=== PATIENT | male | born 1995 | race Caucasian/White ===

== ENCOUNTER 2016-07-18 22:50 | Emergency (ER) | payer OTHER ==
[~2016-07-18] VITALS: Ht 175.3 cm; Wt 57.0 kg
[2016-07-18 22:56] VITALS: BP 156/63; PULSE 87; RESP 16; TEMP 98.5; O2SAT 97
--- NOTE | 2016-07-18 23:48 | PD ---
HPI Chief Complaint: Facial Pain or Swelling Time Seen by Provider: 22:53 Travel History International Travel<30 days: No Contact w/Intl Traveler<30days: No Traveled to known affect area: No History of Present Illness HPI Patient is a pleasant 20-year-old male who presents the emergency department with right sided eye swelling and facial pain. Patient was apparently found by passersby lying in the middle of the road. They called EMS. Patient admits to drinking heavily tonight and does not know what happened or how he got there. EMS noted a hematoma over the right eyes/face. Patient arrived in back board/ cervical collar. Smelling heavily of alcohol. Clothing wet. Patient does not know what happened and denies pain anywhere other than the head/face. [facility] Past Medical History Medical other: Yes ([place]) Tetanus Vaccination: Unknown Past Surgical History Surgical History: No Previous Surgery Social History Alcohol Use: Yes (OCCATIONALLY) Tobacco Use: Yes (1/2 PPD) Substance Use: Yes (MARIJUANA) Review of Systems ROS Limitations: Intoxication, Poor Historian Physical Exam Exam Limitations: Intoxication, Poor Historian Narrative GENERAL: Cachectic male young in no acute distress covered in wet clothing, smelling heavily of alcohol SKIN: Focused skin assessment warm/dry. HEAD: Right sided periorbital, facial swelling. Mild tenderness palpation over the right temporal region without palpable ecchymosis Normocephalic. EYES: Right sided periorbital ecchymosis and swelling. Pupils equal and round, EOMI without evidence of entrapment. No scleral icterus. No injection or drainage. ENT: No nasal bleeding or discharge. Mucous membranes pink and moist. NECK: Supple without midline tenderness to palpation CARDIOVASCULAR: Regular rate and rhythm. No murmur appreciated. No tenderness to palpation of the chest wall RESPIRATORY: No accessory muscle use. GASTROINTESTINAL: Abdomen soft, non-tender, nondistended. MUSCULOSKELETAL: Moves all extremity's normally without obvious deformity. No midline tenderness to palpation of thoracic or lumbar spine NEUROLOGICAL: Awake and alert questions and follows commands appropriately but confused about historical events of today. Motor grossly within normal limits. Normal speech. Data Data Last Documented VS Vital Signs Date Time Temp Pulse Resp B/P Pulse Ox O2 Delivery O2 Flow Rate FiO2 07/18/16 22:56 98.5 87 16 156/[address] Brain W/O Iv Contrast(Rout) (07/18/16 22:53) Ct Cerv Spine W/O Contrast (07/18/16 22:53) Ct Facial Bones W/O Iv Cont (07/18/16 22:53) MDM Medical Decision Making Medical Screen Exam Complete: Yes Emergency Medical Condition: Yes Medical Record Reviewed: Yes Differential Diagnosis 20-year-old male here found down outside with right sided head/facial trauma, heavily intoxicated. Differential includes closed head injury, skull fracture, ICH, overall fracture, orbital ecchymosis, facial fracture, cervical spine fracture, alcohol intoxication Narrative Course CTs of the head, neck and facial bones were obtained and negative. Patient reassured. He was able to ambulate independently in the emergency department despite his intoxication will be discharged home with safe ride. Diagnosis Primary Impression: Traumatic periorbital ecchymosis of right eye Qualified Code: S05.11XA - Traumatic periorbital ecchymosis of right eye, initial encounter Additional Impression: Alcohol intoxication Qualified Code: F10.920 - Alcohol intoxication, uncomplicated Referrals: Primary Care Physician as needed Additional Instructions: Ice to the affected area 20 minutes at a time 3-4 times daily. Tylenol, ibuprofen as needed for pain. Med/Other Pt SpecificInfo: No Change to Meds Disposition: 01 DISCHARGE HOME Condition: Stable Linda Ng MD July 18, 2016 23:48
--- NOTE | 2016-07-18 23:57 | RADRPT ---
EXAM DATE/TIME: 07/18/2016 23:40 [facility] COMPARISON: No previous studies available for comparison. INDICATIONS : Found unresponsive. RADIATION DOSE: 32.47 CTDIvol (mGy) MEDICAL HISTORY : None SURGICAL HISTORY : None. ENCOUNTER: Initial ACUITY: 1 day PAIN SCALE: Non-responsive LOCATION: distal TECHNIQUE: Multiple contiguous axial images were obtained of the head. Using automated exposure control and adj ustment of the mA and/or kV according to patient size, radiation dose was kept as low as reasonably a chievable to obtain optimal diagnostic quality images. FINDINGS: CEREBRUM: The ventricles are normal for age. No evidence of midline shift, mass lesion, hemorrhage or acute in farction. No extra-axial fluid collections are seen. POSTERIOR FOSSA: The cerebellum and brainstem are intact. The 4th ventricle is midline. The cerebellopontine angle i s unremarkable. EXTRACRANIAL: The visualized portion of the orbits is intact. There is soft tissue swelling over the right orbit. SKULL: The calvaria is intact. No evidence of skull fracture. CONCLUSION: 1. Unremarkable CT scan of the brain. 2. Soft tissue swelling over right orbit. David Keating MD on July 18, 2016 at 23:55 Board Certified Radiologist. This report was verified electronically.
--- NOTE | 2016-07-19 | RADRPT ---
EXAM DATE/TIME: 07/18/2016 23:40 [facility] COMPARISON: No previous studies available for comparison. INDICATIONS : Found unresponsive. RADIATION DOSE: 19.85 CTDIvol (mGy) MEDICAL HISTORY : None SURGICAL HISTORY : None. ENCOUNTER: Initial ACUITY: 1 day PAIN SCALE: Non-responsive LOCATION: neck TECHNIQUE: Volumetric scanning of the cervical spine was performed. Multiplanar reconstructions in the sagittal, coronal and oblique axial planes were performed. Using automated exposure control and adjustment o f the mA and/or kV according to patient size, radiation dose was kept as low as reasonably achievable to obtain optimal diagnostic quality images. FINDINGS: VERTEBRAE: Normal vertebral body height. No acute bony fracture. ALIGNMENT: No evidence of subluxation. C2-C3: The bony spinal canal is normal in size. No evidence of disc bulge or herniation. The neural forami na are bilaterally patent. C3-C4: The bony spinal canal is normal in size. No evidence of disc bulge or herniation. The neural forami na are bilaterally patent. C4-C5: The bony spinal canal is normal in size. No evidence of disc bulge or herniation. The neural forami na are bilaterally patent. C5-C6: The bony spinal canal is normal in size. No evidence of disc bulge or herniation. The neural forami na are bilaterally patent. C6-C7: The bony spinal canal is normal in size. No evidence of disc bulge or herniation. The neural forami na are bilaterally patent. C7-T1: The bony spinal canal is normal in size. No evidence of disc bulge or herniation. The neural forami na are bilaterally patent. There are some interstitial changes in the upper lung bishop. This is nonspecific. CONCLUSION: 1. Unremarkable CT scan of the cervical spine. 2. Nonspecific interstitial changes in the apices bilaterally. David Keating MD on July 18, 2016 at 23:56 Board Certified Radiologist. This report was verified electronically.
--- NOTE | 2016-07-19 00:01 | RADRPT ---
EXAM DATE/TIME: 07/18/2016 23:40 [facility] COMPARISON: No previous studies available for comparison. INDICATIONS : Found unresponsive. RADIATION DOSE: 32.12 CTDIvol (mGy) MEDICAL HISTORY : None SURGICAL HISTORY : None. ENCOUNTER: Initial ACUITY: 1 day PAIN SCORE: Non-responsive LOCATION: facial TECHNIQUE: Volumetric scanning of the facial bones was performed. Using automated exposure control and adjustme nt of the mA and/or kV according to patient size, radiation dose was kept as low as reasonably achiev able to obtain optimal diagnostic quality images. FINDINGS: ORBITS: The orbital and infraorbital osseous structures are intact. The retroconal structures have a normal configuration. No radiopaque foreign bodies are seen. There is nonspecific soft tissue swelling over the right orbit. NASAL BONE: The nasal bone and maxillary spine are intact ZYGOMATIC ARCHES: Symmetric without evidence of fracture. SINUSES: The maxillary, ethmoid and frontal sinuses are intact. No air-fluid levels seen. NASAL CAVITY: The nasal septum is intact and midline. The lacrimal ducts are intact. SOFT TISSUES: No radiopaque foreign bodies seen. No soft-tissue swelling is seen. INTRACRANIAL: No intracranial air seen. CRIBIFORM PLATE: Grossly intact. CONCLUSION: 1. Soft tissue swelling over the right orbit. 2. No acute bony fracture. David Keating MD on July 18, 2016 at 23:59 Board Certified Radiologist. This report was verified electronically.
[2016-07-19 00:33] VITALS: BP 110/54; PULSE 89; RESP 16; O2SAT 100
== END 2016-07-19 07:52 | disposition home or self-care (01) ==
LOC: NEPE 22:50 → NEPD 07-19 07:52
DX: S05.11XA Contusion of eyeball and orbital tissues, right eye, initial encounter (principal); F10.120 Alcohol abuse with intoxication, uncomplicated; F17.210 Nicotine dependence, cigarettes, uncomplicated; F12.90 Cannabis use, unspecified, uncomplicated; W18.30XA Fall on same level, unspecified, initial encounter; Y92.410 Unspecified street and highway as the place of occurrence of the external cause
CPT/HCPCS: 70450; 70486; 72125